=== PATIENT | female | born 1995 | race American Indian/Alaskan Native ===

== ENCOUNTER 2017-11-01 02:50 | Inpatient (IN) | payer MEDICAID ==
[2017-11-01 03:23] LABS: URINE BLOOD (Dip) POC Negative (NEGATIVE); URINE GLUCOSE (Dip) POC Negative (NEGATIVE); URINE KETONES (Dip) POC Negative (NEGATIVE); URINE LEUKOCYTE EST (Dip) POC Negative (NEGATIVE); URINE NITRITE (Dip) POC Negative (NEGATIVE); URINE TOTAL PROTEIN POC Negative (NEGATIVE)
[2017-11-01 03:23] LABS: URINE PH (Dip) POC 5.5 (5.0-8.5)
[2017-11-01] MEDS: SOD CHLORIDE 0.9% 1,000 ML IV ×5 (03:30→21:18)
[2017-11-01 03:43] LABS: ADD MAN DIFF? NO
[2017-11-01] MEDS: FENTAnyl 50 MCG/ML VIAL IV (03:47)
[2017-11-01 03:58] LABS: ABNORMAL IP MESSAGE 1; BASOPHIL # 0.1 10^3/ul (0.0-0.1); BASOPHILS % 0.2 % (0.0-2.0); HEMATOCRIT 34.4 % (37.0-47.0); HEMOGLOBIN 11.3 g/dl (12.0-16.0); LYMPHOCYTES # 1.2 10^3/ul (0.8-2.9); LYMPHOCYTES % 5.4 % (15.0-51.0); MEAN CORPUSCULAR HEMOGLOBIN 28.3 pg (29.0-33.0); MEAN CORPUSCULAR HGB CONC 32.8 g/dl (32.0-37.0); MEAN CORPUSCULAR VOLUME 86.2 fl (82.0-101.0); MEAN PLATELET VOLUME 9.2 fl (7.4-10.4); MONOCYTE # 1.7 10^3/ul (0.3-0.9); MONOCYTES % 7.6 % (0.0-11.0); NEUTROPHIL # 18.9 10^3/ul (1.6-7.5); NEUTROPHILS % 86.1 % (39.0-77.0); PLATELET COUNT 274 10^3/UL (140-415); RED BLOOD COUNT 3.99 10^6/ul (4.20-5.40); RED CELL DISTRIBUTION WIDTH 17.8 % (11.5-14.5)
[2017-11-01 06:15] LABS: ANION GAP 23 (8-16); BLOOD UREA NITROGEN 13 mg/dl (7-20); CALCIUM 8.8 mg/dl (8.4-10.2); CARBON DIOXIDE 19 mmol/L (21-31); CHLORIDE 107 mmol/L (97-110); CREATININE 0.74 mg/dl (0.44-1.00); GLUCOSE 149 mg/dl (70-220); POTASSIUM 3.4 mmol/L (3.5-5.1); SODIUM 146 mmol/L (135-144)
[2017-11-01 06:17] LABS: INR 0.95; PARTIAL THROMBOPLASTIN TIME 27.7 Sec (25.0-35.0); PROTIME 12.8 Sec (11.9-14.9)
[2017-11-01] MEDS ORDERED: LORAZEPAM 2 MG INJ IV (06:30)
[2017-11-01] MEDS ORDERED: ONDANSETRON 4 MG INJ IV (06:30)
[2017-11-01] MEDS ORDERED: NACL 0.9% 3 ML SYG IV (06:30)
[2017-11-01 06:47] LABS: AMPHETAMINE/METHAMPHETAMINE Negative (NEGATIVE); BARBITURATES Negative (NEGATIVE); BENZODIAZEPINES Negative (NEGATIVE); CANNABINOIDS Negative (NEGATIVE); COCAINE Negative (NEGATIVE); OPIATES Negative (NEGATIVE)
[2017-11-01 06:54] LABS: POSITIVE DIFF @See below
[2017-11-01] MEDS: morphine 2 MG INJ IV ×2 (08:13→17:54)
[2017-11-01] MEDS: SOD CHLORIDE 0.9% 500 ML IV (08:26)
[2017-11-01] MEDS: CEFAZOLIN 1 GM/50 ML (PMX) 50 ML IVPB (09:28)
[2017-11-01] MEDS: MULTIVITAMINS 10 ML, THIAMINE 100 MG, FOLIC ACID 1 MG in SOD CHLORIDE 0.9% 1,000 ML IVPB (10:00)
[2017-11-01 10:39] LABS: LACTIC ACID 3.3 mmol/L (0.5-2.0)
[2017-11-01] MEDS: HYDROCODONE/APAP (5/325) TAB PO ×2 (12:22→21:31)
[2017-11-02] MEDS: morphine 2 MG INJ IV ×4 (01:23→22:12)
[2017-11-02] MEDS: HYDROCODONE/APAP (5/325) TAB PO (04:20)
[2017-11-02] MEDS: MULTIVITAMINS 10 ML, THIAMINE 100 MG, FOLIC ACID 1 MG in SOD CHLORIDE 0.9% 1,000 ML IVPB (09:07)
[2017-11-02] MEDS: SOD CHLORIDE 0.9% 1,000 ML IV ×2 (12:12→22:12)
[2017-11-02] MEDS ORDERED: ROPIVACAINE 0.5 % 30 ML VIAL (13:19)
[2017-11-02] MEDS ORDERED: FENTAnyl 50 MCG/ML VIAL (13:22)
[2017-11-02] MEDS ORDERED: MIDAZOLAM 1 MG/ML 2 ML INJ (13:22)
[2017-11-02] MEDS ORDERED: ROCURONIUM 50 MG INJ (14:26)
[2017-11-02] MEDS ORDERED: PROPOFOL 20 ML ×2 (14:26→14:55)
[2017-11-02] MEDS ORDERED: SUCCINYLCHOLINE CHLORIDE 100 MG/5 ML SYG IV (14:26)
[2017-11-02] MEDS ORDERED: LIDOCAINE 2% (SDV) 5 ML INJ (14:26)
[2017-11-02] MEDS ORDERED: PHENYLephrine (100 MCG/ML) 5ML SYG ×2 (14:55→16:13)
[2017-11-02] MEDS ORDERED: DEXAMETHASONE 4 MG/ML 1 ML INJ (15:06)
[2017-11-02] MEDS ORDERED: ONDANSETRON 4 MG INJ (15:06)
[2017-11-02] MEDS ORDERED: FAMOTIDINE 20 MG INJ (15:06)
[2017-11-02] MEDS: POLYMYXIN/BACITRACIN 1L IRRIG (16:06)
[2017-11-02] MEDS ORDERED: HYDROmorphONE 2 MG/ML SYG (16:13)
[2017-11-02] MEDS ORDERED: HYDROmorphONE (0.2 MG/ML) 10ML SYG IV ×2 (16:30)
[2017-11-02] MEDS ORDERED: PROCHLORPERAZINE 10 MG INJ IV (16:30)
[2017-11-02] MEDS ORDERED: DIPHENHYDRAMINE 50 MG INJ IV (16:30)
[2017-11-02] MEDS ORDERED: MEPERIDINE 25 MG INJ IV (16:30)
[2017-11-02] MEDS ORDERED: FENTAnyl 50 MCG/ML VIAL IV ×3 (16:30)
[2017-11-02] MEDS ORDERED: CEFAZOLIN 1 GM/50 ML (PMX) 50 ML IVPB (18:30)
[2017-11-02] MEDS ORDERED: HYDROCODONE/APAP (5/325) TAB PO (18:30)
[2017-11-02] MEDS ORDERED: NALOXONE (0.4 MG/ML) INJ IV (18:30)
[2017-11-02] MEDS: ONDANSETRON 4 MG INJ IV (18:38)
[2017-11-02] MEDS: HYDROmorphONE (0.2 MG/ML) 10ML SYG IV ×3 (18:52→19:39)
[2017-11-02 18:59] LABS: ADD MAN DIFF? NO
[2017-11-02 19:01] LABS: ABNORMAL IP MESSAGE 1; BASOPHILS % 0.2 % (0.0-2.0); EOSINOPHILS % 0.1 % (0.0-7.0); HEMATOCRIT 27.6 % (37.0-47.0); HEMOGLOBIN 8.9 g/dl (12.0-16.0); LYMPHOCYTES # 0.6 10^3/ul (0.8-2.9); LYMPHOCYTES % 5.4 % (15.0-51.0); MEAN CORPUSCULAR HEMOGLOBIN 28.3 pg (29.0-33.0); MEAN CORPUSCULAR HGB CONC 32.2 g/dl (32.0-37.0); MEAN CORPUSCULAR VOLUME 87.9 fl (82.0-101.0); MEAN PLATELET VOLUME 8.8 fl (7.4-10.4); MONOCYTE # 0.4 10^3/ul (0.3-0.9); MONOCYTES % 3.3 % (0.0-11.0); NEUTROPHIL # 9.7 10^3/ul (1.6-7.5); NEUTROPHILS % 90.2 % (39.0-77.0); PLATELET COUNT 159 10^3/UL (140-415); RED BLOOD COUNT 3.14 10^6/ul (4.20-5.40); RED CELL DISTRIBUTION WIDTH 16.5 % (11.5-14.5)
[2017-11-02 19:01] LABS: WHITE BLOOD COUNT 10.8 10^3/ul (4.8-10.8)
[2017-11-02 19:11] LABS: POSITIVE DIFF @See below
[2017-11-02] MEDS: CEFAZOLIN 1 GM/50 ML (PMX) 50 ML IVPB (20:31)
[2017-11-02] MEDS: D5W-0.45 NACL + KCL 20 MEQ 1,000 ML IV (20:31)
[2017-11-03] MEDS: HYDROCODONE/APAP (5/325) TAB PO ×3 (00:30→22:58)
[2017-11-03] MEDS: morphine 2 MG INJ IV ×6 (01:52→20:43)
[2017-11-03] MEDS: D5W-0.45 NACL + KCL 20 MEQ 1,000 ML IV ×3 (05:13→19:09)
[2017-11-03] MEDS: CEFAZOLIN 1 GM/50 ML (PMX) 50 ML IVPB ×2 (05:13→12:35)
[2017-11-03] MEDS: SOD CHLORIDE 0.9% 1,000 ML IV ×2 (08:12→18:12)
[2017-11-03] MEDS: MULTIVITAMINS 10 ML, THIAMINE 100 MG, FOLIC ACID 1 MG in SOD CHLORIDE 0.9% 1,000 ML IVPB (09:00)
[2017-11-03] MEDS: ENOXAPARIN 40 MG/0.4 ML SYG SC (09:24)
[2017-11-03] MEDS: ACETAMINOPHEN 325 MG TAB PO (14:12)
[2017-11-04] MEDS: morphine 2 MG INJ IV ×4 (01:38→20:11)
[2017-11-04] MEDS: MULTIVITAMINS 10 ML, THIAMINE 100 MG, FOLIC ACID 1 MG in SOD CHLORIDE 0.9% 1,000 ML IVPB (04:08)
[2017-11-04] MEDS: HYDROCODONE/APAP (5/325) TAB PO ×4 (04:12→23:30)
[2017-11-04] MEDS: SOD CHLORIDE 0.9% 1,000 ML IV ×3 (04:12→17:51)
[2017-11-04 05:14] LABS: ADD MAN DIFF? NO
[2017-11-04 05:23] LABS: BASOPHILS % 0.2 % (0.0-2.0); EOSINOPHILS # 0.1 10^3/ul (0.0-0.5); EOSINOPHILS % 1.1 % (0.0-7.0); HEMATOCRIT 22.9 % (37.0-47.0); HEMOGLOBIN 7.6 g/dl (12.0-16.0); LYMPHOCYTES # 2.3 10^3/ul (0.8-2.9); LYMPHOCYTES % 28.5 % (15.0-51.0); MEAN CORPUSCULAR HGB CONC 33.2 g/dl (32.0-37.0); MEAN CORPUSCULAR VOLUME 87.4 fl (82.0-101.0); MEAN PLATELET VOLUME 9.2 fl (7.4-10.4); MONOCYTE # 1.2 10^3/ul (0.3-0.9); MONOCYTES % 14.3 % (0.0-11.0); NEUTROPHIL # 4.4 10^3/ul (1.6-7.5); NEUTROPHILS % 55.3 % (39.0-77.0); PLATELET COUNT 197 10^3/UL (140-415); RED BLOOD COUNT 2.62 10^6/ul (4.20-5.40); RED CELL DISTRIBUTION WIDTH 15.9 % (11.5-14.5)
[2017-11-04 05:46] LABS: ANION GAP 10 (8-16); BLOOD UREA NITROGEN 4 mg/dl (7-20); CALCIUM 7.9 mg/dl (8.4-10.2); CARBON DIOXIDE 29 mmol/L (21-31); CHLORIDE 105 mmol/L (97-110); CREATININE 0.46 mg/dl (0.44-1.00); GLUCOSE 101 mg/dl (70-220); MAGNESIUM 1.8 mg/dl (1.7-2.5); PHOSPHORUS 3.1 mg/dl (2.5-4.9); POTASSIUM 3.9 mmol/L (3.5-5.1); SODIUM 140 mmol/L (135-144)
[2017-11-04] MEDS: ENOXAPARIN 40 MG/0.4 ML SYG SC (09:05)
[2017-11-05] MEDS: morphine 2 MG INJ IV ×2 (00:40→04:43)
[2017-11-05] MEDS: SOD CHLORIDE 0.9% 1,000 ML IV (04:44)
[2017-11-05] MEDS: MULTIVITAMINS 10 ML, THIAMINE 100 MG, FOLIC ACID 1 MG in SOD CHLORIDE 0.9% 1,000 ML IVPB (08:30)
[2017-11-05] MEDS: HYDROCODONE/APAP (5/325) TAB PO ×3 (08:31→22:22)
[2017-11-05] MEDS: ENOXAPARIN 40 MG/0.4 ML SYG SC (08:32)
[2017-11-05] MEDS: KETOROLAC 15 MG INJ IV ×2 (11:14→17:45)
[2017-11-05 12:23] LABS: IRON 23 ug/dl (35-150)
[2017-11-05 12:32] LABS: % IRON SATURATION 8 % SAT (22-52); TOTAL IRON BINDING CAPACITY 281 ug/dl (241-421)
[2017-11-05 13:01] LABS: FERRITIN 36.2 ng/ml (6.2-137.0)
[2017-11-05] MEDS: SOD FERRIC GLUC COMPLX 125 MG in SOD CHLORIDE 0.9% 100 ML IVPB (17:45)
[2017-11-06] MEDS: HYDROCODONE/APAP (5/325) TAB PO ×3 (04:53→18:32)
[2017-11-06] MEDS: MAGNESIUM HYDROXIDE 30ML CUP PO (04:53)
[2017-11-06 05:16] LABS: ADD MAN DIFF? NO
[2017-11-06 05:19] LABS: WHITE BLOOD COUNT 7.1 10^3/ul (4.8-10.8)
[2017-11-06 05:19] LABS: ABNORMAL IP MESSAGE 1; BASOPHILS % 0.3 % (0.0-2.0); EOSINOPHILS # 0.5 10^3/ul (0.0-0.5); EOSINOPHILS % 7.2 % (0.0-7.0); HEMATOCRIT 21.1 % (37.0-47.0); LYMPHOCYTES # 2.1 10^3/ul (0.8-2.9); LYMPHOCYTES % 29.2 % (15.0-51.0); MEAN CORPUSCULAR HEMOGLOBIN 28.6 pg (29.0-33.0); MEAN CORPUSCULAR HGB CONC 32.7 g/dl (32.0-37.0); MEAN CORPUSCULAR VOLUME 87.6 fl (82.0-101.0); MEAN PLATELET VOLUME 8.8 fl (7.4-10.4); MONOCYTE # 0.7 10^3/ul (0.3-0.9); MONOCYTES % 9.3 % (0.0-11.0); NEUTROPHIL # 3.8 10^3/ul (1.6-7.5); NEUTROPHILS % 52.9 % (39.0-77.0); NUCLEATED RED BLOOD CELLS% 0.3 /100WBC (0.0-0.0); PLATELET COUNT 278 10^3/UL (140-415); RED BLOOD COUNT 2.41 10^6/ul (4.20-5.40); RED CELL DISTRIBUTION WIDTH 15.2 % (11.5-14.5)
[2017-11-06 05:34] LABS: HEMOGLOBIN 6.9 g/dl (12.0-16.0); POSITIVE DIFF @See below
[2017-11-06] MEDS: DOCUSATE SODIUM 100 MG CAP PO ×2 (08:37→21:24)
[2017-11-06] MEDS: ENOXAPARIN 40 MG/0.4 ML SYG SC (08:41)
[2017-11-06 11:10] LABS: IMMEDIATE SPIN CROSSMATCH 1 2
[2017-11-06] MEDS: SOD FERRIC GLUC COMPLX 125 MG in SOD CHLORIDE 0.9% 100 ML IVPB (17:54)
[2017-11-06] MEDS: KETOROLAC 15 MG INJ IV (22:25)
[2017-11-07] MEDS: HYDROCODONE/APAP (5/325) TAB PO ×2 (04:07→15:05)
[2017-11-07 05:49] LABS: ADD MAN DIFF? NO
[2017-11-07 06:13] LABS: WHITE BLOOD COUNT 9.6 10^3/ul (4.8-10.8)
[2017-11-07 06:13] LABS: BASOPHILS % 0.4 % (0.0-2.0); EOSINOPHILS # 0.5 10^3/ul (0.0-0.5); EOSINOPHILS % 5.1 % (0.0-7.0); HEMATOCRIT 25.5 % (37.0-47.0); HEMOGLOBIN 8.5 g/dl (12.0-16.0); LYMPHOCYTES # 1.7 10^3/ul (0.8-2.9); LYMPHOCYTES % 17.2 % (15.0-51.0); MEAN CORPUSCULAR HEMOGLOBIN 28.9 pg (29.0-33.0); MEAN CORPUSCULAR HGB CONC 33.3 g/dl (32.0-37.0); MEAN CORPUSCULAR VOLUME 86.7 fl (82.0-101.0); MEAN PLATELET VOLUME 8.9 fl (7.4-10.4); MONOCYTE # 0.9 10^3/ul (0.3-0.9); MONOCYTES % 9.7 % (0.0-11.0); NEUTROPHIL # 6.3 10^3/ul (1.6-7.5); NEUTROPHILS % 65.1 % (39.0-77.0); NUCLEATED RED BLOOD CELLS% 0.2 /100WBC (0.0-0.0); PLATELET COUNT 332 10^3/UL (140-415); RED BLOOD COUNT 2.94 10^6/ul (4.20-5.40); RED CELL DISTRIBUTION WIDTH 15.1 % (11.5-14.5)
[2017-11-07 06:27] LABS: ANION GAP 12 (8-16); BLOOD UREA NITROGEN 15 mg/dl (7-20); CALCIUM 8.8 mg/dl (8.4-10.2); CARBON DIOXIDE 27 mmol/L (21-31); CHLORIDE 106 mmol/L (97-110); CREATININE 0.52 mg/dl (0.44-1.00); GLUCOSE 102 mg/dl (70-220); MAGNESIUM 2.2 mg/dl (1.7-2.5); PHOSPHORUS 4.5 mg/dl (2.5-4.9); POTASSIUM 4.1 mmol/L (3.5-5.1); SODIUM 141 mmol/L (135-144)
[2017-11-07] MEDS: DOCUSATE SODIUM 100 MG CAP PO (09:27)
[2017-11-07] MEDS: ENOXAPARIN 40 MG/0.4 ML SYG SC (09:30)
== END 2017-11-07 17:35 | disposition home or self-care (01) | DRG 481 ==
LOC: E/R 02:50 → MS1 06:15
PROC: 0QSB04Z Reposition Right Lower Femur with Internal Fixation Device, Open Approach (ICD-10-PCS; principal; 2017-11-02 14:00)
PROC: 30233N1 Transfusion of Nonautologous Red Blood Cells into Peripheral Vein, Percutaneous Approach (ICD-10-PCS; 2017-11-02 14:41)
DX: S72.451A Displaced supracondylar fracture without intracondylar extension of lower end of right femur, initial encounter for closed fracture (principal); S72.432A Displaced fracture of medial condyle of left femur, initial encounter for closed fracture; D62 Acute posthemorrhagic anemia; I95.2 Hypotension due to drugs; F10.129 Alcohol abuse with intoxication, unspecified; Y90.4 Blood alcohol level of 80-99 mg/100 ml; M25.462 Effusion, left knee; M25.461 Effusion, right knee; W10.9XXA Fall (on) (from) unspecified stairs and steps, initial encounter
CPT/HCPCS: 36430; 70450; 71045; 72125; 72170; 73550; 73562; 73590; 80048; 80306; 80307; 81003; 82728; 82962; 83540; 83605; 83735; 84100; 84703; 85025; 85610; 85730; 86644; 86850; 86900; 86901; 86920; 87040; 93005; 96374; 97116; 97161; 97530; 99285-25